=== PATIENT | male | born 1955 | race Caucasian/White ===

== ENCOUNTER 2022-05-26 21:50 | Emergency (ER) | payer MEDICARE ==
[~2022-05-26] VITALS: Ht 188 cm; Wt 154.2 kg
[2022-05-26 22:19] LABS: BASOPHILS ABSOLUTE AUTO 0.06 K/mm3 (0.00-0.23); BASOPHILS PERCENT AUTO 1 % (0-2); EOSINOPHILS ABSOLUTE AUTO 0.13 K/mm3 (0.00-0.68); EOSINOPHILS PERCENT AUTO 1 % (0-6); Hematocrit 48.1 % (37.0-53.0); Hemoglobin 16.2 g/dL (13.5-17.5); IMMATURE GRAN ABSOLUTE AUTO 0.03 K/mm3 (0.00-0.10); IMMATURE GRAN PERCENT AUTO 0 % (0-1); LYMPHOCYTES ABSOLUTE AUTO 1.72 K/mm3 (0.84-5.20); LYMPHOCYTES PERCENT AUTO 16 % (21-46); MONOCYTES ABSOLUTE AUTO 0.66 K/mm3 (0.16-1.47); MONOCYTES PERCENT AUTO 6 % (4-13); Mean Corpuscular HGB 29.7 pg (26.0-34.0); Mean Corpuscular HGB Conc 33.7 g/dL (31.5-36.5); Mean Corpuscular Volume 88 fL (80-100); Mean Platelet Volume 9.7 fL (9.1-12.4); NEUTROPHILS ABSOLUTE AUTO 8.07 K/mm3 (1.96-9.15); NEUTROPHILS PERCENT AUTO 76 % (41-73); Platelet Count 217 K/mm3 (150-400); RDW Coefficient Variation 12.4 % (11.7-14.2); RDW Standard Deviation 39.8 fL (35.1-46.3); Red Blood Cell Count 5.46 M/mm3 (4.30-5.90); White Blood Cell Count 10.67 K/mm3 (4.00-11.30)
[2022-05-26 22:45] LABS: Albumin, Blood 3.9 g/dL (3.4-5.0); Albumin/Globulin Ratio 1.1 (0.8-1.8); Bun/Creatinine Ratio 15.5 (12.0-20.0); Calcium, Blood 9.1 mg/dL (8.5-10.1); Creatinine, Blood 1.29 mg/dL (0.60-1.20); Globulin, Blood 3.4 g/dL (2.2-4.0); Potassium, Blood 4.6 mmol/L (3.5-5.5); Total Protein, Blood 7.3 g/dL (6.4-8.2)
[2022-05-27] MEDS ORDERED: LOSA25 PO (01:41)
[2022-05-27] MEDS ORDERED: METF500 PO (01:41)
[2022-05-27] MEDS ORDERED: TAMS.4ER PO (01:53)
[2022-05-27] MEDS ORDERED: CEFP200 PO (01:55)
[2022-05-27 01:57] LABS: Source, Urine Clean Catch
[2022-05-27 02:21] LABS: Appearance, Urine Clear (Clear); Bilirubin, Urine Neg (Neg); Blood, Urine 4+ (Neg); Color, Urine Yellow (P-Yellow); Glucose Qualitative, Urine Neg (Neg); Ketones, Urine Neg (Neg); Leukocyte Esterase, Urine Neg (Neg); Nitrite, Urine Neg (Neg); Protein, Urine 2+ (Neg); Specific Gravity, Urine 1.015 (1.003-1.022); Urobilinogen, Urine NORM (Normal)
[2022-05-27 02:32] LABS: White Blood Cells, Urine 0-2 /hpf (0-5)
[2022-05-27 02:33] LABS: Bacteria Rare /hpf; Squamous Epithelial Cells Rare /hpf (Few)
== END 2022-05-27 02:08 | disposition home or self-care (01) ==
LOC: ER 21:50
PROVIDERS: Physician Assistant
DX: N13.2 Hydronephrosis with renal and ureteral calculous obstruction (principal); N39.0 Urinary tract infection, site not specified
CPT/HCPCS: 74177; 80053; 81001; 85025; A9270; J1885; J7030; Q9967

== ENCOUNTER → 2023-05-19 | Outpatient (CLI) | payer MEDICARE ==
[~2023-05-19] MED LIST: CEFP200 PO; LOSA25 PO; METF500 PO; TAMS.4ER PO
== END ==
LOC: LAB SHORT 16:41 → LAB 16:41
DX: R30.0 Dysuria (principal)
CPT/HCPCS: 87086

== ENCOUNTER 2024-01-19 11:29 | Observation (INO) | payer MEDICARE ==
[~2024-01-19] VITALS: Ht 188 cm; Wt 147.4 kg
[2024-01-19 12:12] LABS: BASOPHILS ABSOLUTE AUTO 0.05 K/mm3 (0.00-0.23); BASOPHILS PERCENT AUTO 1 % (0-2); EOSINOPHILS PERCENT AUTO 3 % (0-6); Hematocrit 50.8 % (37.0-53.0); Hemoglobin 16.9 g/dL (13.5-17.5); IMMATURE GRAN ABSOLUTE AUTO 0.02 K/mm3 (0.00-0.10); IMMATURE GRAN PERCENT AUTO 0 % (0-1); LYMPHOCYTES ABSOLUTE AUTO 1.65 K/mm3 (0.84-5.20); LYMPHOCYTES PERCENT AUTO 23 % (21-46); MONOCYTES ABSOLUTE AUTO 0.53 K/mm3 (0.16-1.47); MONOCYTES PERCENT AUTO 7 % (4-13); Mean Corpuscular HGB 30.5 pg (26.0-34.0); Mean Corpuscular HGB Conc 33.3 g/dL (31.5-36.5); Mean Corpuscular Volume 92 fL (80-100); Mean Platelet Volume 10.2 fL (9.1-12.4); NEUTROPHILS ABSOLUTE AUTO 4.87 K/mm3 (1.96-9.15); NEUTROPHILS PERCENT AUTO 67 % (41-73); Platelet Count 207 K/mm3 (150-400); RDW Coefficient Variation 12.4 % (11.7-14.2); RDW Standard Deviation 41.7 fL (35.1-46.3); Red Blood Cell Count 5.54 M/mm3 (4.30-5.90); White Blood Cell Count 7.32 K/mm3 (4.00-11.30)
[2024-01-19 12:20] LABS: Albumin, Blood 3.7 g/dL (3.4-5.0); Bilirubin, Total 1.2 mg/dL (0.1-1.0); Bun/Creatinine Ratio 18.3 (12.0-20.0); Calcium, Blood 8.8 mg/dL (8.5-10.1); Creatinine, Blood 1.15 mg/dL (0.60-1.20); Globulin, Blood 3.8 g/dL (2.2-4.0); Potassium, Blood 5.1 mmol/L (3.5-5.5); Total Protein, Blood 7.5 g/dL (6.4-8.2)
[2024-01-19] MEDS ORDERED: Nitroglycerin 1 INCH/GM PKT TOP ONE (12:50)
[2024-01-19] MEDS ORDERED: LOSA50 PO (12:50)
[2024-01-19] MEDS ORDERED: Aspirin 325 MG Tab PO ONE (12:50)
[2024-01-19] MEDS ORDERED: TOPROL XL50 M1 PO (12:51)
[2024-01-19] MEDS ORDERED: IBU800 M1 PO (12:51)
[2024-01-19] MEDS ORDERED: Mag Hydrox/AL Hydrox/Simeth 30 ML UDC PO ONE (14:00)
[2024-01-19] MEDS ORDERED: Famotidine 10 MG/ML 2ML Vial IV ONE (14:00)
[2024-01-19] MEDS ORDERED: Clopidogrel Bisulfate 300 MG Cap PO ONE (15:40)
[2024-01-19 15:57] LABS: Anti-Xa UFH, PHA Monitoring <0.10 IU/mL; Prothrombin Time Results 11.7 Sec (9.7-11.5)
[2024-01-19] MEDS ORDERED: Heparin Sodium,Porcine/0.5 NS 500 ML IV SCH (16:15)
[2024-01-19] MEDS ORDERED: Heparin Sodium 5000 Units/ML 1ML MDV IV ONE (16:15)
[2024-01-19 16:51] LABS: LDL/HDL RATIO 0.9; Magnesium, Blood 1.6 mg/dL (1.6-2.4); Very Low Density Lipoprot Chol 41 mg/dL (6-32)
[2024-01-19 16:52] LABS: CHOL/HDL RATIO 2.6; Cholesterol 153 mg/dL (50-200); HDL Cholesterol 58 mg/dL (>39); Low Density Lipoprotein Chol 54 mg/dL (0-110); Triglycerides 206 mg/dL (30-160)
[2024-01-19 17:21] VITALS: BP 116/92
--- NOTE | 2024-01-19 17:32 | NUR ---
NURSE NOTE PT ARRIVES FROM THE ER VIA BED. PT SAT UP AT THE SIDE OF THE BED, THEN TRANSFERED FROM ER BED TO OUR PCU BED. PT A+O X4, NO CONCERNS W/ INITAL SET OF VITAL SIGNS. KOBY ORONA REPORT PT IN NORMAL SINUS AT A RATE OF 62. PT WEIGHT OF 147.1 KG IN BED. NO SKIN ISSUES. PT TRANSFERED SELF TO RECLINER. PNEUMATIC TOOL OPERATOR BROUGHT IN DINNER TRAY, PT NOW SITTING UP IN RECLINER EATING DINNER. CBG TAKEN AND WAS 115. CALL LIGHT IN REACH.
[2024-01-19] MEDS ORDERED: Insulin Regular 100 UNIT/ML 10ML Vial SC SCH ×2 (18:00→21:00)
--- NOTE | 2024-01-19 18:51 | NUR ---
NURSE NURSE DR. CROW ROUNDED ON PATIENT AND DISCUSSED PLAN OF CARE. PATIENT TO BE NPO AT MIDNIGHT, HEPARIN DISCONTINUED.
[2024-01-19 19:40] VITALS: BP 136/88
--- NOTE | 2024-01-19 20:17 | NUR ---
PT ABLE TO AMBULATE INDEPENDENTLY AND SAFELY TO THE BR TO HAVE A BM.
--- NOTE | 2024-01-19 20:18 | NUR ---
PT OOB TO CHAIR INDEPENDENTLY. PT STEADY ON FEET. NO C/O CP/SOB. AOX4.
[2024-01-19 23:31] VITALS: BP 157/96
[2024-01-20 03:57] VITALS: BP 151/86
--- NOTE | 2024-01-20 06:14 | NUR ---
PT STABLE THROUGHOUT THE SHIFT. NO C/O CP/SOB. PT AMBULATED IN ROOM W/O PROBLEM. PT HAS MAINTAINED NPO SINCE MIDNIGHT FOR TESTING. NO CAFFEINE CONTAINING SUBSTANCES CONSUMED.
[2024-01-20 07:22] VITALS: BP 151/87
[2024-01-20] MEDS ORDERED: Aspirin 81 MG Chew PO SCH (08:00)
[2024-01-20] MEDS ORDERED: Losartan Potassium 50 MG Tab PO SCH (09:00)
[2024-01-20] MEDS ORDERED: Clopidogrel Bisulfate 75 MG Tab PO SCH (09:00)
[2024-01-20] MEDS ORDERED: Metoprolol Succinate 25 MG TABCR PO SCH (09:00)
[2024-01-20 11:38] LABS: Bun/Creatinine Ratio 18.3 (12.0-20.0); Calcium, Blood 9.2 mg/dL (8.5-10.1); Creatinine, Blood 1.15 mg/dL (0.60-1.20)
[2024-01-20 11:45] VITALS: BP 150/80
--- NOTE | 2024-01-20 12:27 | NUR ---
Brief bedside report from RAVIN Maher. I am assuming care of the patient. He is sitting up in his chair, without any complaints of discomfort or pain at this time.
[2024-01-20] MEDS ORDERED: Regadenoson 0.4 MG/5 ML SYRINGE ONE (14:16)
[2024-01-20] MEDS ORDERED: Caffeine Citrated 60 MG/3 ML Vial ONE (14:16)
[2024-01-20 16:40] VITALS: BP 144/66
--- NOTE | 2024-01-20 18:03 | NUR ---
Alerted to frequent PVCs and bigeminy be telemarketing representative [place]. Mg level noted yesterday was 1.6, none checked today; K at 1100 was 5.0. Call to Dr. Merritt, Mg level ordered, Dr rivas can be added to 1100 am labs from this morning.
[2024-01-20 20:04] VITALS: BP 137/91
[2024-01-21 00:26] VITALS: BP 131/93
[2024-01-21 03:56] VITALS: BP 133/75
--- NOTE | 2024-01-21 04:56 | NUR ---
SHIFT SUMMARY. SHIFT HAS BEEN UNREMARKABLE. PT AOX4, PLEASANT, COOPERATIVE WITH CARE, CALLS APPROPRIATELY, ABLE TO MAKE NEEDS KNOWN. HAS BEEN ABLE TO REST COMFORTABLY THROUGHOUT MOST OF SHIFT. HAS DENIED PAIN THROUGHOUT SHIFT. VITALS STABLE. NPO SINCE MIDNIGHT PENDING SECOND PART OF STRESS TEST TODAY. PT REMAINS INDEPENDENT WITHIN ROOM AND CALLS APPROPRIATELY FOR ASSISTANCE. PT HAS BEEN INDEPENDENT TO THE BATHROOM SEVERAL TIMES OVERNIGHT BUT HAS NOT BEEN COLLECTING URINE FOR DOCUMENTATION PURPOSES. REAFFIRMED EDUCATION FOR URINE OUTPUT CHARTING AND LEFT URINE HAT IN ROOM. TELE ON THROUGHOUT SHIFT, RUNNING SINUS. BED LOCKED IN LOWEST POSITION. CALL LIGHT LEFT WITHIN REACH. CONTINUING TO MONITOR.
--- NOTE | 2024-01-21 05:17 | NUR ---
DISCUSSION WITH PT. PT REQUESTING WATER, INFORMED THAT HE IS GOING THROUGH SECOND PART OF STRESS TEST TODAY AND IS THEREFORE NPO PENDING STRESS TEST COMPLETION. PT BECAME SOMEWHAT IRRITABLE AND INFORMED THAT HE WAS DRINKING WATER ALL DAY YESTERDAY PRIOR TO PART 1 AND THAT HE WAS INFORMED THAT WATER WAS NO PROBLEM. SPOKE WITH SCIENCE INSTRUCTOR PAULO COSTELLO WHO AGAIN REAFFIRMED THAT PT IS SUPPOSED TO BE NPO PENDING STRESS TEST COMPLETION. AGAIN INFORMED PT OF THIS AND WARNED THAT DRINKING FLUIDS COULD POSSIBLY DELAY COMPLETION OF STRESS TEST. PT AGAIN REQUESTED WATER AND SAID THAT HE LIKELY WILL NOT HAVE IT COMPLETED UNTIL LATER AND HE IS NOT GOING TO GO ALL DAY WITHOUT DRINKING WATER. PROVIDED 250 MLS OF WATER PER PT REQUEST. CONTINUING TO MONITOR.
[2024-01-21 08:39] VITALS: BP 115/96
[2024-01-21 11:41] VITALS: BP 147/88
[2024-01-21 15:34] VITALS: BP 131/73
--- NOTE | 2024-01-21 17:24 | NUR ---
ASSUMED CARE OF PT AT 0700 THIS AM. NO ACUTE EVENTS T/O THE DAY. 2ND HALF OF STRESS TEST COMPLETED. PT HAS DENIED CHEST PAIN OR PRESSURE T/O THE SHIFT. SEE DOCUMENTED VS AND ASSESSMENT. 1725- DR HARTLEY NOTIFIED OF STRESS TEST RESULTS, STATES HE WILL REVIEW AND PLACE ORDERS.
[2024-01-21] MEDS ORDERED: Aspir 8181 MG PO (17:54)
--- NOTE | 2024-01-21 18:07 | NUR ---
PT DISCHARGED HOME WITH ALL HIS BELONGINGS IN THE CARE OF HIS . DISCHARGE TEACHING INCLUDING MEDICATION LIST/INSTRUCTIONS, FOLLOW UP APPOINTMENTS, AND EDUCATION MATERIALS. PT AND ARE ALLOWED TIME TO ASK QUESTIONS, THIS RN ANSWERED THEM TO THEIR SATISFACTION. PT/ VERBALIZE UNDERSTANDING OF DISCHARGE INSTRUCTIONS AND HAVE NO FURTHER QUESTIONS OR CONCERNS AT THIS TIME. IV/TELE REMOVED. NO FURTHER DISCHARGE NEEDS IDENTIFIED.
== END 2024-01-21 18:06 | disposition home or self-care (01) ==
LOC: ER 11:29 → PCU 11:30
PROVIDERS: Physician Assistant; Student in an Organized Health Care Education/Training Program; ADMIT Family Medicine
DX: R07.89 Other chest pain (principal); G47.33 Obstructive sleep apnea (adult) (pediatric); I10 Essential (primary) hypertension; E11.9 Type 2 diabetes mellitus without complications; Z93.0 Tracheostomy status; E66.9 Obesity, unspecified; Z68.41 Body mass index [BMI] 40.0-44.9, adult; Z88.0 Allergy status to penicillin; Z79.84 Long term (current) use of oral hypoglycemic drugs; Z79.899 Other long term (current) drug therapy
CPT/HCPCS: 36415; 71046; 71260; 78452; 80048; 80053; 80061; 82947; 83036; 83690; 83735; 83880; 84443; 84484; 85025; 85520; 85610; 85730; 93005; 93010; 93017; 96374; 99285-25; A9270; A9500; G0378; J0706; J1644; J2785; Q9967

== ENCOUNTER → 2024-07-03 | Outpatient (CLI) | payer MEDICARE ==
[~2024-07-03] MED LIST changes: +Aspir 8181 MG PO; +IBU800 M1 PO; +LOSA50 PO; +TOPROL XL50 M1 PO
[2024-07-03 17:03] LABS: BASOPHILS ABSOLUTE AUTO 0.06 K/mm3 (0.00-0.23); BASOPHILS PERCENT AUTO 1 % (0-2); EOSINOPHILS ABSOLUTE AUTO 0.26 K/mm3 (0.00-0.68); EOSINOPHILS PERCENT AUTO 4 % (0-6); Hematocrit 49.9 % (37.0-53.0); Hemoglobin 16.6 g/dL (13.5-17.5); IMMATURE GRAN ABSOLUTE AUTO 0.01 K/mm3 (0.00-0.10); IMMATURE GRAN PERCENT AUTO 0 % (0-1); LYMPHOCYTES ABSOLUTE AUTO 1.51 K/mm3 (0.84-5.20); LYMPHOCYTES PERCENT AUTO 23 % (21-46); MONOCYTES PERCENT AUTO 6 % (4-13); Mean Corpuscular HGB 30.4 pg (26.0-34.0); Mean Corpuscular HGB Conc 33.3 g/dL (31.5-36.5); Mean Corpuscular Volume 91 fL (80-100); Mean Platelet Volume 10.1 fL (9.1-12.4); NEUTROPHILS ABSOLUTE AUTO 4.39 K/mm3 (1.96-9.15); NEUTROPHILS PERCENT AUTO 66 % (41-73); Platelet Count 190 K/mm3 (150-400); RDW Coefficient Variation 13.1 % (11.7-14.2); RDW Standard Deviation 42.9 fL (35.1-46.3); Red Blood Cell Count 5.46 M/mm3 (4.30-5.90); White Blood Cell Count 6.63 K/mm3 (4.00-11.30)
[2024-07-03 22:33] LABS: Alanine Aminotransfer (ALT/SGP 22 U/L (12-78); Albumin, Blood 3.8 g/dL (3.4-5.0); Albumin/Globulin Ratio 1.1 (0.8-1.8); Alk Phos 123 U/L (50-136); Anion Gap 8 mmol/L (3-11); Aspartate Aminotrans (AST/SGOT 13 U/L (12-37); Bilirubin, Total 1.4 mg/dL (0.1-1.0); Blood Urea Nitrogen 20 mg/dL (8-24); Bun/Creatinine Ratio 18.3 (12.0-20.0); CHOL/HDL RATIO 2.6; CO2, Blood 31 mmol/L (21-32); Calcium, Blood 8.8 mg/dL (8.5-10.1); Chloride, Blood 103 mmol/L (98-108); Cholesterol 157 mg/dL (50-200); Creatinine, Blood 1.09 mg/dL (0.60-1.20); Globulin, Blood 3.4 g/dL (2.2-4.0); Glomerular Filtration Rate 73 (60-); Glucose, Blood 158 mg/dL (70-99); HDL Cholesterol 60 mg/dL (>39); LDL/HDL RATIO 1.2; Low Density Lipoprotein Chol 73 mg/dL (0-110); Potassium, Blood 5.2 mmol/L (3.5-5.5); Sodium, Blood 137 mmol/L (136-145); Total Protein, Blood 7.2 g/dL (6.4-8.2); Triglycerides 121 mg/dL (30-160); Very Low Density Lipoprot Chol 24 mg/dL (6-32)
== END ==
LOC: LAB SHORT 11:20 → LAB 11:20
PROVIDERS: Nurse Practitioner Family
DX: E11.59 Type 2 diabetes mellitus with other circulatory complications (principal)
CPT/HCPCS: 80053; 80061; 85025